=== PATIENT | female | born 1990 | race Two or more races ===

== ENCOUNTER 2018-09-17 18:28 | Inpatient (IN) | payer OTHER ==
[~2018-09-17] VITALS: Ht 157.5 cm; Wt 61.3 kg
[2018-09-17 20:03] LABS: HEMATOCRIT 41.6 % (36.0-47.0); HEMOGLOBIN 13.8 g/dl (12.0-15.5); MEAN CORPUSCULAR HEMOGLOBIN 29.6 pg (27.0-33.0); MEAN CORPUSCULAR HGB CONC 33.2 g/dl (32.0-36.5); MEAN CORPUSCULAR VOLUME 89.3 fl (80.0-96.0); PLATELET COUNT, AUTOMATED 240 10^3/uL (150-450); RED BLOOD COUNT 4.66 10^6/uL (4.00-5.40); WHITE BLOOD COUNT 9.7 10^3/uL (4.0-10.0)
[2018-09-17 20:29] LABS: HCG, SERUM QUALITATIVE NEGATIVE (NEGATIVE)
[2018-09-17 20:30] LABS: AMPHETAMINES LEVEL URINE NEGATIVE (NEGATIVE); BARBITURATES URINE NEGATIVE (NEGATIVE); BENZODIAZEPINES URINE NEGATIVE (NEGATIVE); CANNABINOIDS URINE NEGATIVE (NEGATIVE); COCAINE METABOLITE URINE NEGATIVE (NEGATIVE); METHADONE URINE NEGATIVE (NEGATIVE); OPIATES URINE NEGATIVE (NEGATIVE); PHENCYCLIDINE URINE NEGATIVE (NEGATIVE)
[2018-09-17 20:32] LABS: ACETAMINOPHEN LEVEL < 2.0 UG/ML (10.0-30.0); ALBUMIN 4.2 GM/DL (3.2-5.2); ALT/SGPT 36 U/L (12-78); BILIRUBIN,DIRECT < 0.1 MG/DL (0.0-0.2); BILIRUBIN,TOTAL 0.3 MG/DL (0.2-1.0); BLOOD UREA NITROGEN 14 MG/DL (7-18); CALCIUM LEVEL 9.4 MG/DL (8.5-10.1); CARBON DIOXIDE LEVEL 25 MEQ/L (21-32); CHLORIDE LEVEL 106 MEQ/L (98-107); CREATININE FOR GFR 0.64 MG/DL (0.55-1.30); GLOMERULAR FILTRATION RATE > 60.0 (>60); GLUCOSE, FASTING 82 MG/DL (70-100); POTASSIUM SERUM 4.3 MEQ/L (3.5-5.1); SALICYLATE LEVEL < 1.7 MG/DL (5.0-30.0); SODIUM LEVEL 138 MEQ/L (136-145); THYROID STIMULATING HORMONE 0.844 uIU/ML (0.358-3.740); TOTAL PROTEIN 7.7 GM/DL (6.4-8.2)
[2018-09-17 20:44] LABS: ETHYL ALCOHOL (ETHANOL) < 0.003 % (0.000-0.010)
[2018-09-18] MEDS ORDERED: MOM 30ML SUSPENSION UDC PO PRN (11:00)
[2018-09-18] MEDS ORDERED: MAALOX 30 ML SUSP *UDC PO PRN (11:00)
[2018-09-18] MEDS ORDERED: traZODone 50 MG TAB PO PRN (11:00)
[2018-09-18 11:33] VITALS: BP 113/63
[2018-09-18 18:00] VITALS: BP 115/57
[2018-09-18] MEDS: ACETAMINOPHEN TAB 650MG DOSE (2X325MG) PO PRN (20:51)
[2018-09-19 06:43] VITALS: BP 97/51
[2018-09-19] MEDS: ACETAMINOPHEN TAB 650MG DOSE (2X325MG) PO PRN (10:24)
--- NOTE | 2018-09-19 13:17 | MHHPEPDOC ---
General Date Of Admission: Sep 18, 2018 Legal Status: 9.39 Chief Complaint "I don't want to harm myself." History of Present Illness HISTORY OF THE PRESENT ILLNESS: Patient is a 27 -year-old [place] Greenlandic, dependant female, with no previous psych history who was brought to the ED by LINDA ford after called 911 b/c pt has wrapped a t-shirt around her neck threatening to kill herself after he told her he wanted a divorce per ED. Pt in the ED stated that they are not and "every time we argue he wants a divorce." Per ED, told them when contacted by staff that he wanted a divorce. Pt stated in the ED that she and her were arguing since 09/17 and he said some hurtful things to her. She denied SI though and said she doesn't want to harm herself. Per ED she was tearful. She endorsed worsening depression, anhedonia, avolition, crying episodes, anxiety, mood swings over the past 2wks with the worst being 6/6 in when seen in ED. She did admit to a history of SI that she stated she never acted on nor wants to want on in the ED. Psychiatric Review of Systems Depression (2 or more weeks): depressed mood, anhedonia, decreased energy, difficulty concentrating, suicidal thoughts Sonia (4 or more days of): denies Psychosis: denies PTSD: denies Anxiety: situational anxiety, stressor related anxiety Anxiety/ 6 months or more of: restlessness, keyed up, easily fatigued, difficulty concentrating, irritability Past Psychiatric History Previous Psychiatric Diagnosis: denies Previous Psychiatric Admissions: denies Suicide Attempts: denies Psychiatric Follow-up: denies Psychiatric medications: denies Past Medical History Medical Problems denies Head Injury: No Seizures: No Hospitalizations: No Surgeries: No Family Medical/Psychiatric HX Medical Problems noncontributory Psychiatric Disorders: No Addiction: No Suicide Attemps/Completions: No Addiction History denies Social History Childhood: born and raised in [place], 2 parent home until parents divorce when pt was 12, 1 younger brother, 1 older sister, good childhood Abuse/Trauma:denies Current Living Situation: living with and roommate in [place] since 04/01 (first time away from family in [place]) Education: grad high school, 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 and plans to return in the Fall so she can taken care of children with cancer as had leukemia 4-7y/o Employment: works at [employer] in [employer] Social Support: , family Legal: denies Marital: 2 yrs, no kids Mental Status Examination General Appearance: well groomed, appears stated age, hospital scubs/clothing Build: average Demeanor: average Eye Contact: average Activity: average Behavior: cooperative Speech: clear, spontaneous, reg/rate,rhythm,volume Mood: euthymic, anxious Mood "good" Affect: full, appropriate, congruent, anxious Thought Process: logical/linear, intact Thought Content (Delusions): none reported, denies SI, HI, AVH Thought Content (Other): none reported, appropriate Thought Content (Aggressive): none reported Perception (Hallucinations): none reported Perception (Other): none reported Cognition (Impairment of): none reported Cognition(Intelligence Est.): average Oriented: Awake, Alert, Oriented times three Insight: good Judgment: Fair Psychosis: Denies Diagnoses Adjustment d/o with anxiety and depression A-FIB/CHADSVASC A-FIB History Current/History of A-Fib/PAF?: No Current PO Anticoag Therapy: No Treatment Treatment ordered: NONE Reason Anticoagulant not given: Not indicated/Sytnt0rrek Assessment Pt seen and states she here b/c her called the police b/c she said she wanted to hurt myself and put a shirt on my shoulders and started crying a lot. States though that she doesn't want to harm herself and doesn't know why she said what she said and regrets it. States she was just frustrated and missing home in [place] too. States she feels better today after talking to police and staff in ED that made her realized there's a lot more to life and to look froward to in her future. 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 Denies depression and states her mood is up and down based on what she's doing but good at the moment. States when she and her argue he says he wants a divorce. States he came to visit yesterday and he apologized and would like to go to couples counseling with her to work on their marriage. Has an appt for assessment at [place] this month for therapy. Initial Treatment Plan 1. Patient was admitted on a 9.39] status. 2. Complete history was obtained. 3. With patients permission, family will be contacted and database will be expanded. 4. Patients medication regimen will be reviewed and changed accordingly. 5. Patient will be provided with protected environment. 6. Patient will be treated with individual, group, and milieu therapies. 7. Patient will receive supportive psych-education. 8. Discharge planning will commence immediately. 9. Outpatient follow-up treatment will be strongly recommended. 10. The initial treatment plan will focus initially on: * Depression. * Risk for suicide. * Substance abuse. 11. monitor for safety ESTIMATED LENGTH OF STAY: 3-5 DAYS. TIME SPENT COUNSELING AND COORDINATING INITIAL CARE: 60 minutes. Vital Signs Vital Signs Date Time Temp Pulse Resp B/P (MAP) Pulse Ox O2 Delivery O2 Flow Rate FiO2 09/19/18 06:43 98.2 55 14 97/51 (66) 09/18/18 11:33 97 09/18/18 11:00 Room Air Medications No Active Prescriptions or Reported Meds Allergies Coded Allergies: No Known Allergies (Unverified , 09/17/18) IMTIAZ JONES DO Sep 19, 2018 1:17 pm
[2018-09-19 18:08] VITALS: BP 114/65
[2018-09-20 06:34] VITALS: BP 93/52
--- NOTE | 2018-09-20 07:52 | ECGEPIP ---
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
[2018-09-20 18:10] VITALS: BP 117/65
--- NOTE | 2018-09-20 19:52 | MHIPNPDOC ---
[facility] Progress Note Progress Note DATE OF SERVICE: 09/20/18 HISTORY: Patient is a 27 -year-old Thai Malawian, dependant female, with no previous psych history who was brought to the ED by LINDA ford after h sidney called 911 b/c pt has wrapped a t-shirt around her neck threatening to kill herself after he told her he wanted a divorce per ED. Pt in the ED stated that they are not and "every time we argue he wants a divorce." Per ED, told them when contacted by staff that he wanted a divorce. Pt stated in the ED that she and her were arguing since 09/17 and he said some hurtful things to her. She denied SI though and said she doesn't want to harm herself. Per ED she was tearful. She endorsed worsening depression, anhedonia, avolition, crying episodes, anxiety, mood swings over the past 2wks with the worst being 6/6 in when seen in ED. She did admit to a history of SI that she stated she never acted on nor wants to want on in the ED. VITAL SIGNS: See below. NEW TEST RESULTS: See below CURRENT MEDICATIONS: See below. MENTAL STATUS EXAMINATION: Patient is a 27-year old female, who is alert, cooperative, dressed in personal clothes. Speech: Is spontaneous and fluent, normal volume, rhythm, tone Language skills are good Thought processes including: linear, coherent. Thought content: denies SI/HI. Abstract reasoning, and computation: fair Description of associations: good Description of abnormal or psychotic thoughts: denies AV solutions Judgment: fair Insight: improving. Orientation: x 3. Recent and remote memory: intact. Attention span and concentration: good. Language: normal. Fund of knowledge: average, full . Mood: euthymic. Affect: congruent with mood, full, appropriate DIAGNOSES: Adjustment d/o with anxiety and depression ASSESSMENT: The patient is very pleasant and cooperative, she says she has found groups helpful, she has been writing letters to her saying that she is sorry for what she did, she is trying to communicate better, not to bottle things up. She says she misses her family and [place]. she feels fine with her medications, she denies medications side effects. MANAGEMENT PLAN: As per Dr. Abreu TIME SPENT: 20 minutes. Vital Signs Vital Signs Date Time Temp Pulse Resp B/P (MAP) Pulse Ox O2 Delivery O2 Flow Rate FiO2 09/20/18 18:10 99.1 69 16 117/65 (82) 09/18/18 11:33 97 09/18/18 11:00 Room Air Current Medications Current Medications Acetaminophen (Tylenol Tab) 650 mg Q6HP PRN PO HEADACHE or DISCOMFORT Last administered on 09/19/18at 10:24; Start 09/18/18 at 11:00 Al Hydrox/Mg Hydrox/Simethicone (Mylanta) 30 ml Q4HP PRN PO HEARTBURN/INDIGESTION; Start 09/18/18 at 11:00 Home Med (Med Rec Complete!) ASDIRECTED XX ; Start 09/18/18 at 12:45; Stop 09/18/18 at 12:45; Status DC Magnesium Hydroxide (Milk Of Magnesia) 30 ml DAILYPRN PRN PO CONSTIPATION; Start 09/18/18 at 11:00 Trazodone HCl (Desyrel) 50 mg QHSP PRN PO INSOMNIA; Start 09/18/18 at 11:00 Allergies Coded Allergies: No Known Allergies (Unverified , 09/17/18) SUELLEN VEGAS MD Sep 20, 2018 19:29
[2018-09-21 06:24] VITALS: BP 101/63
--- NOTE | 2018-09-21 17:51 | HPEPDOC ---
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 She she has been following regularly with PCP and has been undergoing routine f/u surveillance. Denies any other medical condition. Upon the encounter pt is 27 y/o appropriate for age, denies any acute medical complaints. Admitted to [facility] sec to family argument. Denies any bruising, lymph node enlargement, denies any respiratory, GI or cardiac symptoms. Has IUD with spotting. Last seen [facility] with Pap smear. 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 Family History Significant Family History: No pertinent family hx Social History * Smoker: non-smoker Alcohol: Denies Drugs: denies Recent Travel/Sick Contacts: Denies: Recent travel, Recent sick contacts Psychosocial History: Decreased mood A-FIB/CHADSVASC A-FIB History Current/History of A-Fib/PAF?: No Review of Systems Constitutional: Denies: Chills, Fever, Night Sweats Eyes: Denies: Pain, Vision change ENT: Denies: Head Aches, Ear Pain, Dysphagia Skin: Denies: Rash, Lesions, Breakdown Pulmonary: Denies: Dyspnea, Cough Cardiovascular: Denies: Chest Pain, Palpitations, Orthopnea, Paroxysmal Noc. Dy spnea, Lt Headedness Gastrointestinal: Denies: Nausea, Vomiting, Abdominal Pain, Diarrhea Genitourinary: Denies: Dysuria, Frequency, Incontinence, Retention Hematologic: Denies: Bruising, Bleeding Excessively Musculoskeletal: Denies: Neck Pain, Back Pain, Joint Pain, Muscle Pain, Spasms Neurological: Denies: Weakness, Numbness, Change in speech, Confusion Psych: Reports: Mood Normal; Denies: Depression, Memory Issues Physical Examination General Exam: Positive: Alert, No Acute Distress Eye Exam: Positive: PERRLA, Conjunctiva & lids normal, EOMI; Negative: Sclera icteric ENT Exam: Positive: Atraumatic, Mucous membr. moist/pink, Pharynx Normal Neck Exam: Positive: Supple; Negative: JVD, thyromegaly Chest Exam: Positive: Clear to auscultation, Normal air movement Heart Exam: Positive: Rate Normal, Regular Rhythm, Normal S1, Normal S2; Negative: Murmurs, Rubs Telemetry: Positive: No significant arrhythmia Abdomen Exam: Positive: Normal bowel sounds, Soft; Negative: Tenderness, Hepatospenomegaly Extremity Exam: Positive: Normal pulses; Negative: Clubbing, Cyanosis, Edema Skin Exam: Positive: Nl turgor and temperature; Negative: Breakdown, Lesion Neuro Exam: Positive: Normal Gait, Normal Speech, Cranial Nerves 3-12 NL, Reflexes 2+ Psych Exam: Positive: Mental status NL, Mood NL, Oriented x 3 Vital Signs Vital Signs Date Time Temp Pulse Resp B/P (MAP) Pulse Ox O2 Delivery O2 Flow Rate FiO2 09/21/18 06:24 97.7 67 14 101/63 (76) 09/18/18 11:33 97 09/18/18 11:00 Room Air Assessment/Plan A/P Pt is 27 y/o F who was seen in [facility]. Pt with Hx of ALL in complete remission. -Diet/exercise stressed to pt -Routine medical care -[facility] f/u -Avoidance of smoking/ETOH/Illicit drug use Thank you for the consult. Plan / VTE VTE Prophylaxis Ordered?: No VTE Exclusion Mechanical Proph: Low Risk for VTE DIANNE PATEL MD Sep 21, 2018 17:51
[2018-09-21 18:12] VITALS: BP 118/73
--- NOTE | 2018-09-21 22:08 | MHIPNPDOC ---
[facility] Progress Note Progress Note DATE OF SERVICE: 09/21/18 HISTORY: Patient is a 27 -year-old Zambian Israeli, dependant female, with no previous psych history who was brought to the ED by LINDA ford after h sidney called 911 b/c pt has wrapped a t-shirt around her neck threatening to kill herself after he told her he wanted a divorce per ED. Pt in the ED stated that they are not and "every time we argue he wants a divorce." Per ED, told them when contacted by staff that he wanted a divorce. Pt stated in the ED that she and her were arguing since 09/17 and he said some hurtful things to her. She denied SI though and said she doesn't want to harm herself. Per ED she was tearful. She endorsed worsening depression, anhedonia, avolition, crying episodes, anxiety, mood swings over the past 2wks with the worst being 6/6 in when seen in ED. She did admit to a history of SI that she stated she never acted on nor wants to want on in the ED. VITAL SIGNS: See below. NEW TEST RESULTS: See below CURRENT MEDICATIONS: See below. MENTAL STATUS EXAMINATION: Patient is a 27-year old female, who is alert, cooperative, dressed in personal clothes. Speech: Is spontaneous and fluent, normal volume, rhythm, tone Language skills are good Thought processes including: linear, coherent. Thought content: denies SI/HI. Abstract reasoning, and computation: fair Description of associations: good Description of abnormal or psychotic thoughts: denies AV hallucinations, denies thought delusions Judgment: improving Insight: improving. Orientation: x 3. Recent and remote memory: intact. Attention span and concentration: good. Language: normal. Fund of knowledge: average, full . Mood: euthymic. Affect: congruent with mood, full, appropriate DIAGNOSES: Adjustment d/o with anxiety and depression ASSESSMENT: The patient is smiling today, she feels very happy. she has been social[facility] and reports that one of them has been making them laugh. She is future orientated, she has been talking to her about her emotions. She has been attending groups and learning coping skills. She finds this hospitalization very helpful MANAGEMENT PLAN: As per Dr. Abreu TIME SPENT: 20 minutes. Vital Signs Vital Signs Date Time Temp Pulse Resp B/P (MAP) Pulse Ox O2 Delivery O2 Flow Rate FiO2 09/21/18 18:12 99.4 74 16 118/73 (88) 09/18/18 11:33 97 09/18/18 11:00 Room Air Current Medications Current Medications Acetaminophen (Tylenol Tab) 650 mg Q6HP PRN PO HEADACHE or DISCOMFORT Last administered on 09/19/18at 10:24; Start 09/18/18 at 11:00 Al Hydrox/Mg Hydrox/Simethicone (Mylanta) 30 ml Q4HP PRN PO HE ARTBURN/INDIGESTION; Start 09/18/18 at 11:00 Home Med (Med Rec Complete!) ASDIRECTED XX ; Start 09/18/18 at 12:45; Stop 09/18/18 at 12:45; Status DC Magnesium Hydroxide (Milk Of Magnesia) 30 ml DAILYPRN PRN PO CONSTIPATION; Start 09/18/18 at 11:00 Trazodone HCl (Desyrel) 50 mg QHSP PRN PO INSOMNIA; Start 09/18/18 at 11:00 Allergies Coded Allergies: No Known Allergies (Unverified , 09/17/18) SUELLEN VEGAS MD Sep 21, 2018 22:08
[2018-09-22 06:37] VITALS: BP 112/67
--- NOTE | 2018-09-22 09:27 | MHDSPDOC ---
[facility] Discharge Summary Discharge Summary DATE OF ADMISSION: Sep 18, 2018 at 10:49 am DATE OF DISCHARGE: Sep 22, 2018 DISCHARGE DIAGNOSES: Adjustment d/o with anxiety and depression REASON FOR ADMISSION: Patient is a 27 -year-old Palauan, dependant female, with no previous psych history who was brought to the ED by LINDA ford after called 911 b/c pt has wrapped a t-shirt around her neck threatening to kill herself after he told her he wanted a divorce per ED. Pt in the ED stated that they are not and "every time we argue he wants a divorce." Per ED, told them when contacted by staff that he wanted a divorce. Pt stated in the ED that she and her were arguing since 09/17 and he said some hurtful things to her. She denied SI though and said she doesn't want to harm herself. Per ED she was tearful. She endorsed worsening depression, anhedonia, avolition, crying episodes, anxiety, mood swings over the past 2wks with the worst being 6/6 in when seen in ED. She did admit to a history of SI that she stated she never acted on nor wants to want on in the ED. CONSULTANTS INVOLVED: none TREATMENT AND PROGRESS ON THE UNIT : Pt was admitted to [facility], seen for psychiatric assessment and not started on any psychotropic medications as she preferred to try therapy first for depression. She was provided trazodone 50mg qhs prn insomnia. She attended groups daily during her stay. Her symptoms improved with treatment. On day of discharge she denied depression, anxiety, insomnia, SI/HI, hallucinations, delusions. She was discharged home with her with follow-up at the [facility]. She felt safe for discharge. DISCHARGE ASSESSMENT: Pt seen and states that her mood is good and she's looking forward to going home today with her who is supportive and visited her all weekend. States she's being social on the milieu which is beneficial. States she slept well last night. Feels she is tolerating her medications and they're beneficial. She is attending groups and finding them helpful. She denies depression, anxiety, insomnia, SI/HI, hallucinations, delusions. Pt feels safe to be discharged home with her . MENTAL STATUS EXAMINATION ON DISCHARGE: Patient is a 27-year old female, who is alert, cooperative, dressed in personal clothes. Speech: Is spontaneous and fluent, normal volume, rhythm, tone Language skills are good Thought processes including: linear, coherent. Thought content: denies SI/HI. Abstract reasoning, and computation: fair Description of associations: good Description of abnormal or psychotic thoughts: denies AV hallucinations, denies thought delusions Judgment: good Insight: good Orientation: x 3. Recent and remote memory: intact. Attention span and concentration: good. Language: normal. Fund of knowledge: average, full . Mood: euthymic. Affect: congruent with mood, full, appropriate MEDICATIONS ON DISCHARGE: none PLAN/FOLLOWUP ARRANGEMENTS: D/c home with follow-up at [facility]. The amount of time spent in the coordination of care for this patient was approximately 30 minutes. Vital Signs/I&Os Vital Signs Date Time Temp Pulse Resp B/P (MAP) Pulse Ox O2 Delivery O2 Flow Rate FiO2 09/22/18 06:37 97.2 52 14 112/67 (82) 09/18/18 11:33 97 09/18/18 11:00 Room Air Medications No Active Prescriptions or Reported Meds Allergies Coded Allergies: No Known Allergies (Unverified , 09/17/18) IMTIAZ JONES DO Sep 22, 2018 9:27 am
== END 2018-09-22 11:25 | disposition home or self-care (01) | DRG 882 ==
LOC: M ED 18:28 → M ED INP 09-18 10:49 → M PSY 09-18 11:10
PROVIDERS: ADMIT Psychiatry & Neurology Psychiatry; ATTEND Psychiatry & Neurology Psychiatry
DX: F43.23 Adjustment disorder with mixed anxiety and depressed mood (principal); C91.01 Acute lymphoblastic leukemia, in remission; Z63.0 Problems in relationship with spouse or partner; Z92.21 Personal history of antineoplastic chemotherapy

== ENCOUNTER → 2018-10-30 | Outpatient (REF) | payer OTHER | LOC: M SFHCLERA 17:25 | PROVIDERS: ATTEND Nurse Practitioner Family | DX: J02.9 Acute pharyngitis, unspecified (principal) ==